=== PATIENT | male | born 1955 | race Caucasian/White ===

== ENCOUNTER 2018-12-09 09:26 | Day surgery (SDC) | payer BC ==
[2018-12-09] MEDS: BUPIVACAINE 0.25% (MPF) 30 ML INJ INJ
[~2018-12-09 09:26] MED LIST: SOD CHLORIDE 0.9% 1,000 ML IV
[2018-12-09] MEDS ORDERED: CEFAZOLIN 1 GM INJ ×2 (11:30→14:18)
[2018-12-09] MEDS ORDERED: SEVOFLURANE 15 MIN ×2 (11:30→14:17)
[2018-12-09] MEDS ORDERED: EPHEDrine SULFATE 50 MG/5 ML SYG (11:30)
[2018-12-09] MEDS ORDERED: OXYCODONE/ACETAMINOPHEN (5/325) TAB PO (13:00)
[2018-12-09] MEDS ORDERED: DIPHENHYDRAMINE 50 MG INJ IV (13:00)
[2018-12-09] MEDS ORDERED: FENTAnyl 50 MCG/ML VIAL IV ×3 (13:00)
[2018-12-09] MEDS ORDERED: PROCHLORPERAZINE 10 MG INJ IV (13:00)
[2018-12-09] MEDS ORDERED: hydrALAzine 20 MG INJ IV (13:00)
[2018-12-09] MEDS ORDERED: EPHEDrine SULFATE 50 MG/5 ML SYG IV (13:00)
[2018-12-09] MEDS ORDERED: LABETALOL HCL 20MG INJ IV (13:00)
[2018-12-09] MEDS ORDERED: HYDROmorphONE 1 MG/5 ML IV SYRINGE IV ×3 (13:00)
[2018-12-09] MEDS ORDERED: PROPOFOL 20 ML (14:02)
[2018-12-09] MEDS ORDERED: LIDOCAINE 2% (SDV) 5 ML INJ (14:02)
[2018-12-09] MEDS ORDERED: MIDAZOLAM 1 MG/ML 2 ML INJ ×2 (14:02→14:15)
[2018-12-09] MEDS ORDERED: FENTAnyl 50 MCG/ML VIAL (14:02)
[2018-12-09] MEDS ORDERED: ROPIVACAINE 0.5 % 30 ML VIAL (14:03)
[2018-12-09] MEDS ORDERED: ROCURONIUM 50 MG INJ (14:03)
[2018-12-09] MEDS ORDERED: SUCCINYLCHOLINE CHLORIDE 100 MG/5 ML SYG IV (14:03)
[2018-12-09] MEDS ORDERED: DEXAMETHASONE 4 MG/ML 5 ML INJ (14:18)
[2018-12-09] MEDS ORDERED: ONDANSETRON 4 MG INJ (14:18)
[2018-12-09] MEDS ORDERED: FAMOTIDINE 20 MG INJ (14:18)
[2018-12-09] MEDS: CEFAZOLIN 2 GM/50 ML (PMX) 50 ML IVPB (14:18)
[2018-12-09] MEDS ORDERED: HYDROmorphONE 2 MG/ML SYG (14:39)
[2018-12-09] MEDS: POLYMYXIN/BACITRACIN 1L IRRIG IRR ×2 (14:42)
[2018-12-09] MEDS ORDERED: GLYCOPYRROLATE 0.4 MG INJ ×2 (14:58→15:04)
[2018-12-09] MEDS ORDERED: NEOSTIGMINE 10 MG INJ (14:58)
[2018-12-09] MEDS ORDERED: SUGAMMADEX SODIUM 200 MG/2 ML VIAL IV (15:02)
[2018-12-09] MEDS: MEPERIDINE 25 MG INJ IV (16:08)
[2018-12-09] MEDS: ONDANSETRON 4 MG INJ IV (16:08)
[2018-12-09] MEDS: HYDROCODONE/APAP (5/325) TAB PO (16:14)
== END 2018-12-09 18:09 | disposition home or self-care (01) ==
LOC: SDS 09:26
DX: K40.30 Unilateral inguinal hernia, with obstruction, without gangrene, not specified as recurrent (principal)
CPT/HCPCS: 49507; 88304